=== PATIENT | male | born 1960 | race American Indian/Alaskan Native ===

== ENCOUNTER 2017-08-27 12:38 | Emergency (ER) | payer OTHER ==
[2017-08-27 12:43] VITALS: TEMP 99
--- NOTE | 2017-08-27 13:01 | C.PDOC ---
History Of Present Illness REQUESTING EVAL FOR B/L EAR RINGING X 1 YR. [place] EVAL @ [facility] [place], ADVISED NEED FOR DRAINAGE. "IM JUST TRYING TO FIGURE OUT WHERE TO GO I WASNT GIVEN REFERRAL". NO OTHER ASSOC SX. DENIES PMH EXAM NAD HEENT B/L TM CLEAR; OUTER EAR WNL REMAINDE RNEG MDM PT ADVISED NEED FOR HTN EVAL. CLINIC INFO GIVEN Time Seen by Provider: 08/27/17 13:00 Chief Complaint (Nursing): ENT Problem History Per: Patient History/Exam Limitations: None Onset/Duration Of Symptoms: Persistent (1 year) Current Symptoms Are (Timing): Still Present Past Medical History Reviewed: Historical Data, Nursing Documentation, Vital Signs Vital Signs: Last Vital Signs Temp 99.0 F 08/27/17 12:40 Pulse 80 08/27/17 12:40 Resp 20 08/27/17 12:40 BP 183/110 H 08/27/17 12:40 Pulse Ox 96 08/27/17 13:20 Family History: States: No Known Family Hx - Social History Hx Alcohol Use: No Hx Substance Use: No Review Of Systems Except As Marked, All Systems Reviewed And Found Negative. Constitutional: Negative for: Fever ENT: Positive for: Other ((+) ear ringing). Negative for: Ear Discharge Musculoskeletal: Negative for: Neck Pain Physical Exam - Physical Exam Appears: Non-toxic, No Acute Distress Skin: Warm, Dry Ear(s): Bilateral: Normal (TM clear, outer ear WNL) Oral Mucosa: Moist Respiratory: Normal Breath Sounds Extremity: Normal ROM, No Swelling Neurological/Psych: Oriented x3, Normal Speech ED Course And Treatment O2 Sat by Pulse Oximetry: 96 (RA) Pulse Ox Interpretation: Normal Medical Decision Making Medical Decision Making: NOTE: Patient advised need for HTN eval. Clinic info given. Disposition Counseled Patient/Family Regarding: Diagnosis, Need For Followup, Rx Given - Disposition Referrals: [facility] [Outside] [facility] [Outside] Disposition: HOME/ ROUTINE Disposition Time: 13:18 Condition: GOOD Prescriptions: Hydrochlorothiazide [Microzide] 25 mg PO DAILY #60 cap Instructions: Hypertension (ED), Tinnitus (ED) Forms: [employer] (Yakut) - Clinical Impression Clinical Impression: Tinnitus, Hypertension - Scribe Statement The provider has reviewed the documentation as recorded by the Scribe Hanna Collins Provider Attestation: All medical record entries made by the Krista were at my direction and personally dictated by me. I have reviewed the chart and agree that the record accurately reflects my personal performance of the history, physical exam, medical decision making, and the department course for this patient. I have also personally directed, reviewed, and agree with the discharge instructions and disposition.
[2017-08-27 13:44] VITALS: BP 175/109; PULSE 85; RESP 16; O2SAT 98
== END 2017-08-27 13:43 | disposition home or self-care (01) ==
LOC: C.ER 12:38
DX: H93.13 Tinnitus, bilateral (principal); I10 Essential (primary) hypertension

== ENCOUNTER 2017-12-15 11:58 | Emergency (ER) | payer OTHER ==
--- NOTE | 2017-12-15 12:31 | C.PDOC ---
History Of Present Illness 57-year-old male, presents to the emergency department with complaints of three week duration of intermittent dark spots in right eye field of vision. Patient denies any blurred vision, trauma, eye pain, headache, dizziness, facial droop, slurred speech, extremity weakness or sensory changes. Time Seen by Provider: 12/15/17 12:19 Chief Complaint (Nursing): Eye Problem History Per: Patient Current Symptoms Are (Timing): Still Present Severity: Moderate Past Medical History Reviewed: Historical Data, Nursing Documentation, Vital Signs Vital Signs: Last Vital Signs Temp 97.7 F 12/15/17 13:37 Pulse 72 12/15/17 13:37 Resp 18 12/15/17 13:51 BP 159/112 H 12/15/17 13:43 Pulse Ox 97 12/15/17 15:29 Family History: States: No Known Family Hx - Social History Hx Alcohol Use: No Hx Substance Use: No - Immunization History Hx Tetanus Toxoid Vaccination: No Hx Influenza Vaccination: No Hx Pneumococcal Vaccination: No Review Of Systems Constitutional: Negative for: Fever Eyes: Positive for: Vision Change. Negative for: Conjunctivae Inflammation, Eyelid Inflammation, Redness Respiratory: Negative for: Shortness of Breath Neurological: Negative for: Weakness, Numbness, Incoordination, Change in Speech , Confusion, Altered Mental Status, Headache, Dizziness Physical Exam - Physical Exam Appears: Non-toxic, No Acute Distress Skin: Normal Color, Warm, Dry, No Rash Head: Atraumatic, Normacephalic Eye(s): bilateral: PERRL, EOMI Nose: Normal Oral Mucosa: Moist Lips: Normal Appearing Neck: Normal ROM Chest: Symmetrical Respiratory: No Accessory Muscle Use Neurological/Psych: Oriented x3, Normal Speech ED Course And Treatment O2 Sat by Pulse Oximetry: 97 (RA) Pulse Ox Interpretation: Normal Progress Note: Tetracaine applied, (+)fluorescein uptake. Patient has a corneal abrasion over the pupil. No foreign body Eye Treatment - Treatment Performed Intraocular Pressure: Tonopen (L: . R: .) Disposition Counseled Patient/Family Regarding: Diagnosis, Need For Followup, Rx Given - Disposition Referrals: Richar Eugene MD [Staff Provider] - Disposition: HOME/ ROUTINE Disposition Time: 13:25 Condition: STABLE Additional Instructions: FOLLOW UP WITH EYE DOCTOR IN 1-2 DAYS USE MEDICATION DIRECTED RETURN TO ER IF SYMPTOMS WORSEN Prescriptions: amLODIPine [Norvasc] 5 mg PO DAILY #30 tab Ofloxacin Ophth 0.3% [Ocuflox Ophth 0.3%] 1 drop GT Q4 #1 bottle Instructions: High Blood Pressure (DC), Corneal Abrasion (DC) Forms: [email or web address] (Occitan) Print Language: MALAGASY - POA Present On Arrival: None - Clinical Impression Clinical Impression: Visual loss, right eye - Scribe Statement The provider has reviewed the documentation as recorded by the Scribe (Endy Miranda) All medical record entries made by the Scribe were at my direction and personally dictated by me. I have reviewed the chart and agree that the record accurately reflects my personal performance of the history, physical exam, medical decision making, and the department course for this patient. I have also personally directed, reviewed, and agree with the discharge instructions and disposition.
[2017-12-15] MEDS ORDERED: Tetracaine 0.5% Ophth (OR ONLY) OD ONE (12:36)
[2017-12-15] MEDS ORDERED: Fluorescein 1 mg Ophthalmic Strip OD ONE (12:36)
[2017-12-15] MEDS ORDERED: Tetracaine 0.5% Ophth (OR ONLY) ONE (12:46)
[2017-12-15] MEDS ORDERED: Fluorescein 1 mg Ophthalmic Strip ONE (12:47)
[2017-12-15 13:38] VITALS: BP 159/112; PULSE 72; RESP 18; TEMP 97.7
[2017-12-15 13:40] VITALS: O2SAT 97
== END 2017-12-15 13:51 | disposition home or self-care (01) ==
LOC: C.ER 11:58
DX: H54.61 Unqualified visual loss, right eye, normal vision left eye (principal)

== ENCOUNTER 2018-04-01 23:03 | Emergency (ER) | payer OTHER ==
[2018-04-01 23:12] VITALS: TEMP 98.4
--- NOTE | 2018-04-01 23:35 | C.PDOC ---
History Of Present Illness pt fell off chair and hurt right side ribs. Complaining of pain with movement. Not short of breath. Speaking in complete sentences. NO f/c/n/v. Remembers the event Time Seen by Provider: 04/01/18 23:34 Chief Complaint (Nursing): Substance Abuse History Per: Patient History/Exam Limitations: no limitations Onset/Duration Of Symptoms: Hrs Current Symptoms Are (Timing): Still Present Suicide/Self Injury Attempted (Context): None Modifying Factor(s): Alcohol Severity: Moderate Pain Scale Rating Of: 4 Associated Symptoms: denies: Anger, Anxiety Involuntary Hold By: None Recent travel outside of the [place]: No Additional History Per: Patient Past Medical History Reviewed: Historical Data, Nursing Documentation, Vital Signs Vital Signs: Last Vital Signs Temp 98.4 F 04/01/18 23:07 Pulse 87 04/01/18 23:07 Resp 18 04/01/18 23:07 BP 122/72 04/01/18 23:07 Pulse Ox 100 04/02/18 00:00 - Medical History PMH: HTN (DENIES MEDICATION) Denies: Chronic Kidney Disease Family History: States: No Known Family Hx - Social History Hx Alcohol Use: Yes Hx Substance Use: No - Immunization History Hx Tetanus Toxoid Vaccination: No Hx Influenza Vaccination: No Hx Pneumococcal Vaccination: No Review Of Systems Constitutional: Negative for: Fever, Chills Cardiovascular: Negative for: Chest Pain Respiratory: Negative for: Shortness of Breath Gastrointestinal: Negative for: Abdominal Pain Musculoskeletal: Positive for: Other (right mid axillary line rib pain) Skin: Negative for: Rash Neurological: Negative for: Weakness Psych: Negative for: Anxiety Physical Exam - Physical Exam Appears: Non-toxic, No Acute Distress Skin: Warm, Dry Chest: Symmetrical, Tenderness (right mid axillary line rib pain, (4-7) no crepitus) Cardiovascular: Rhythm Regular Respiratory: No Rales, No Rhonchi, No Wheezing Gastrointestinal/Abdominal: Soft, No Tenderness, No Distention Back: No CVA Tenderness Extremity: Normal ROM Extremity: Bilateral: Atraumatic Neurological/Psych: Oriented x3, Normal Speech, Normal Cognition Gait: Steady ED Course And Treatment O2 Sat by Pulse Oximetry: 100 Pulse Ox Interpretation: Normal - Radiology CXR: Interpreted by Me, Viewed By Me CXR Interpretation: No: Infiltrates, Fracture, Pnemothorax - Other Rad ribs X-Ray: Interpreted by Me, Viewed By Me Interpretation: poss post 8th rib fx, no dislocation Reevaluation Time: 00:43 Reassessment Condition: Improved Medical Decision Making Medical Decision Making: Upon provider reevaluation patient is feeling better, is medically stable, and requires no further treatment in the ED at this time. Patient will be discharged home with Rx for naproxen . Counseling was provided and all questions were answered regarding diagnosis and need for follow up with the referred clinic. There is agreement to discharge plan. Return if symptoms persist or worsen. Disposition Counseled Patient/Family Regarding: Studies Performed, Diagnosis, Need For Followup, Rx Given - Disposition Referrals: at [facility] [Outside] Disposition: HOME/ ROUTINE Disposition Time: 23:34 Condition: FAIR Additional Instructions: Please return if symptoms recur Prescriptions: Naproxen [Naprosyn] 1 tab PO BID PRN #25 tab PRN Reason: Pain Instructions: Bruised Rib (DC), Contusion (DC) Forms: [employer] (Serbian) - Clinical Impression Clinical Impression: Contusion of rib on right side
[2018-04-02 01:17] VITALS: BP 125/71; PULSE 81; RESP 16; O2SAT 98
--- NOTE | 2018-04-02 09:56 | RAD ---
Date of service: 04/02/2018 PROCEDURE: Radiographs of the Chest and Right Ribs. HISTORY: fall COMPARISON: None available. TECHNIQUE: Frontal radiograph of the chest and multiple oblique radiographs of the right ribs were obtained. FINDINGS: RIGHT RIBS: Minimally displaced fracture of the right lateral 9th rib. LUNGS: Clear. PLEURA: No pneumothorax or pleural fluid. CARDIOVASCULAR: Normal sized heart. No pulmonary vascular congestion. OTHER FINDINGS: None. IMPRESSION: Minimally displaced fracture of the right lateral 9th rib.
== END 2018-04-02 01:29 | disposition home or self-care (01) ==
LOC: C.ER 23:03
DX: S20.211A Contusion of right front wall of thorax, initial encounter (principal); W07.XXXA Fall from chair, initial encounter; I10 Essential (primary) hypertension